=== PATIENT | male | born 1970 | race Caucasian/White ===

== ENCOUNTER 2017-11-28 08:00 | Outpatient (CLI) | payer MEDICAID | END 2017-11-28 23:59 | LOC: LAB.R 08:00 | PROVIDERS: ATTEND Nurse Practitioner | DX: L98.9 Disorder of the skin and subcutaneous tissue, unspecified (principal) | CPT/HCPCS: 87070; 87205 ==

== ENCOUNTER 2017-12-04 08:00 | Outpatient (CLI) | payer MEDICAID ==
[2017-12-04 19:41] LABS: BILIRUBIN,TOTAL 0.4 mg/dL (0.2-1.0); CALCIUM 9.2 mg/dL (8.5-10.3); CREATININE 1.2 mg/dL (0.6-1.2)
[2017-12-04 19:45] LABS: BASOPHILS % (AUTO) 0.5 %; EOSINOPHILS # (AUTO) 0.1 10^3/uL (0.0-0.7); EOSINOPHILS % (AUTO) 2.1 %; LYMPHOCYTES # (AUTO) 1.4 10^3/uL (1.5-3.5); LYMPHOCYTES % (AUTO) 19.6 %; MEAN CORPUSCULAR HEMOGLOBIN 27.6 pg (27.0-31.0); MEAN CORPUSCULAR HGB CONC 32.5 g/dL (32.0-36.0); MEAN CORPUSCULAR VOLUME 84.8 fL (80.0-94.0); MEAN PLATELET VOLUME 9.9 fL (7.4-11.4); MONOCYTES # (AUTO) 0.4 10^3/uL (0.0-1.0); NEUTROPHILS # (AUTO) 5.2 10^3/uL (1.5-6.6); NEUTROPHILS % (AUTO) 72.8 %; PLT - PLATELET COUNT 270 10^3/uL (130-450); RED BLOOD COUNT 4.71 10^6/uL (4.70-6.10); RED CELL DISTRIBUTION WIDTH 14.5 % (12.0-15.0); WHITE BLOOD COUNT 7.1 x10^3/uL (4.8-10.8)
== END 2017-12-04 08:01 | disposition home or self-care (01) ==
LOC: LAB.WCP 08:00
PROVIDERS: ATTEND Nurse Practitioner
DX: F17.210 Nicotine dependence, cigarettes, uncomplicated (principal); I10 Essential (primary) hypertension
CPT/HCPCS: 36415; 80053; 85025

== ENCOUNTER 2017-12-04 13:54 | Outpatient (CLI) | payer MEDICAID ==
--- NOTE | 2017-12-04 15:15 | XRAY Report ---
TWO VIEW CHEST: 12/04/2017 CLINICAL INDICATION: Hypertension, nicotine dependence. FINDINGS: Frontal and lateral views of the chest demonstrate a normal cardiac silhouette. The lungs are clear. No effusion or pneumothorax is present. IMPRESSION: NORMAL CHEST. TD: 12/04/2017 15:13
== END 2017-12-04 13:55 | disposition home or self-care (01) ==
LOC: DI.N 13:54
PROVIDERS: ATTEND Nurse Practitioner
DX: I10 Essential (primary) hypertension (principal); F17.210 Nicotine dependence, cigarettes, uncomplicated
CPT/HCPCS: 36415; 71046; 80053; 85025

== ENCOUNTER 2017-12-05 10:00 | Outpatient (CLI) | payer MEDICAID | END 2017-12-05 10:15 | disposition home or self-care (01) | LOC: RT.N 10:00 | PROVIDERS: ATTEND Nurse Practitioner | DX: I10 Essential (primary) hypertension (principal); F17.210 Nicotine dependence, cigarettes, uncomplicated | CPT/HCPCS: 93005 ==

== ENCOUNTER 2017-12-14 08:51 | Day surgery (SDC) | payer MEDICAID ==
[2017-12-14 09:51] VITALS: BP 131/94
[2017-12-14] MEDS ORDERED: LACTATED RINGERS 1,000 ML IV ONE ×2 (09:56→15:36)
[2017-12-14] MEDS ORDERED: VANCOMYCIN 1 GM VIAL ONE ×2 (11:38)
[2017-12-14] MEDS ORDERED: PROPOFOL 200 MG/20 ML VIAL IVP ONE (13:35)
[2017-12-14] MEDS ORDERED: MIDAZOLAM 2 MG/2 ML VIAL IVP ONE (13:35)
[2017-12-14] MEDS ORDERED: fentaNYL 100 MCG/2 ML VIAL IVP ONE (13:35)
[2017-12-14] MEDS ORDERED: LABETALOL 5 MG/1 ML 20 ML MDV IVP ONE (13:35)
[2017-12-14] MEDS ORDERED: KETOROLAC 30 MG/ML VIAL IVP ONE (13:35)
[2017-12-14] MEDS ORDERED: ONDANSETRON 4 MG/2 ML VIAL IVP ONE (13:35)
[2017-12-14] MEDS ORDERED: ceFAZolin 2 GM/50 ML 2 GM/50 ML BAG IV ONE (16:11)
[2017-12-14] MEDS ORDERED: HYDROmorphone 0.5 MG/0.5 ML SYRINGE IVP PRN (16:40)
[2017-12-14] MEDS ORDERED: ONDANSETRON 4 MG/2 ML VIAL IVP PRN (16:42)
--- NOTE | 2017-12-14 17:29 | XRAY Report ---
TWO-VIEW RIGHT KNEE: 12/14/2017 CLINICAL INDICATION: Fracture fixation. TECHNIQUE: Intraoperative frontal and lateral views of the right knee were obtained. COMPARISON: 11/29/2017 FINDINGS: Previous K-wire and cerclage wire fixation has been removed. New wire fixation is present. Seven seconds of fluoroscopy time was provided to Dr. Jones. Two spot images obtained. IMPRESSION: INTRAOPERATIVE IMAGING OF RIGHT KNEE HARDWARE REMOVAL AND OPEN REDUCTION AND INTERNAL FIXATION. TD: 12/14/2017 17:27
[2017-12-14] MEDS: LACTATED RINGERS 1,000 ML IV SCH (17:35)
[2017-12-14] MEDS: CITALOPRAM 10 MG TABLET PO SCH (17:43)
[2017-12-14] MEDS ORDERED: KETOROLAC 30 MG/ML VIAL IVP SCH (18:00)
[2017-12-14] MEDS: oxyCOD/ACETAMIN 5 MG/325 MG TABLET PO PRN ×2 (18:47→22:43)
[2017-12-14] MEDS ORDERED: SODIUM CHLORIDE FLUSH 0.9% 10 ML SYRINGE ONE (20:19)
[2017-12-15] MEDS: KETOROLAC 30 MG/ML VIAL IVP SCH ×2 (01:38→08:26)
[2017-12-15] MEDS: oxyCOD/ACETAMIN 5 MG/325 MG TABLET PO PRN ×2 (03:17→08:27)
--- NOTE | 2017-12-15 08:16 | Discharge Plan ---
Discharge Plan Disposition: 01 Home, Self Care Condition: Stable Prescriptions: Cephalexin [Keflex] 500 mg PO Q6H #12 capsule Oxycodone HCl/Acetaminophen [Oxycodone-Acetaminophen 5-325] 2 each PO Q4H PRN # 40 tablet PRN Reason: Pain Diet: Regular Activity Restrictions: Use Walker, Partial weight Bearing in Full Extension. Shower Restrictions: Yes (Best is seated with dressing protected with plastic and tape.) Driving Restrictions: Yes (Cannot Drive) Assistance Devices: Walker Weight Bearing: Partial Weight Additional Instructions or Follow Up instructions: Follow-up as scheduled No Smoking: If you smoke, Please STOP! Call for help. Follow-up with: Gualberto Willis ARNP [Primary Care Provider] -
[2017-12-15] MEDS ORDERED: SODIUM CHLORIDE 0.9% MINIBAG 100 ML IV ONE (08:27)
[2017-12-15] MEDS: CITALOPRAM 10 MG TABLET PO SCH (08:27)
[2017-12-15] MEDS: LACTATED RINGERS 1,000 ML IV SCH (08:52)
[2017-12-15] MEDS ORDERED: NON FORMULARY MED (Lisinopril [Lisinopril] 20 MG) PO SCH (09:00)
[2017-12-15] MEDS ORDERED: LISINOPRIL 20 MG TABLET PO SCH (09:00)
[2017-12-15] MEDS ORDERED: ceFAZolin 2 GM in SODIUM CHLORIDE 0.9% MINIBAG 100 ML IV SCH (09:00)
[2017-12-15] MEDS ORDERED: NON FORMULARY MED (Amlodipine Besylate [Amlodipine Besylate] 10 MG) ORAL SCH (09:00)
[2017-12-15] MEDS ORDERED: CITALOPRAM HYDROBROMIDE 20 MG ORAL SCH (09:00)
[2017-12-15] MEDS ORDERED: amLODIPine 5 MG TABLET PO SCH (09:00)
[2017-12-15] MEDS ORDERED: ceFAZolin 2 GM/50 ML 2 GM/50 ML BAG IV SCH (09:00)
--- NOTE | 2017-12-18 09:49 | XRAY Report ---
[facility] Fluoroscopy time only, 2 images submitted for interpretation. Fluoroscopy time 0.07 minutes. MTDD
--- NOTE | 2017-12-18 12:15 | OPERATIVE REPORT ---
DATE OF SERVICE: 12/14/2017 Physician: Rick Jones MD PLEASE REVIEW BLANKS S/L RAISING OR BRIDGING? remove this note before signing - thanks PREOPERATIVE DIAGNOSIS: Right patellar fracture, loss of reduction. POSTOPERATIVE DIAGNOSIS: Right patellar fracture, loss of reduction. PROCEDURE PERFORMED: Right patella, removal of hardware; open reduction and internal fixation; quadriceps V-Y advancement. ANESTHESIA: Spinal plus LMA. ESTIMATED BLOOD LOSS: 150 mL. TOURNIQUET TIME: 300 mm up for 90 minutes, then down for 33 minutes, then up for 55 minutes, then down. INDICATIONS: This man had suffered a fall and closed transverse comminuted patellar fracture in 08/2017 while living in [place]. He developed a popliteal sore and infection a few days later related to brace irritation. This took approximately 2 months to close. While still in [place], he underwent open reduction and internal fixation with 2 K-wires as a tension band technique. He presented here in early November with disrupted repair and hardware, as well as a crusty anterior surgical incision with staple sites. There were no other signs of infection. He has spent about 2 weeks scrubbing the wound area with brush and Hibiclens. PROCEDURE IN DETAIL: Spinal anesthetic was placed in the preoperative area. Patient was then brought to the operating room and placed on a standard operating room table. The right lower extremity was prepped and sterilely draped in the usual fashion. A high thigh tourniquet was placed and ultimately inflated as listed above. A timeout was held to identify patient, site, and procedure. The right lower extremity was then exsanguinated and the tourniquet elevated as above. The double knife technique was used to fully excise the prior surgical scar. The path through the subcutaneous tissue was full of scar and was divided sharply with electrocautery. The distal quadriceps fascia was exposed and a plane developed between this and the thigh fascia. This was then carried down over the patella and very proximal patellar tendon. The fracture gap was filled with organizing scar tissue. A specimen was sent for culture. There was an approximately 1-inch gap between the distal anterior edge of the proximal fragment and the anterior proximal edge of the distal fragment. On anterior view, the distal fragment showed about a 45-degree bevel relative to the axial plane of the patella. On the AP view, the distal end of the proximal fragment was rotated about 30 degrees to the axial plane. Both bones, cancellous sides, were fairly smooth flat surfaces. Both fragments were very stable although . The little portion that could be seen of the posterior surface of the distal fragment was undamaged articular cartilage. The deep surface of the proximal fragment could not be seen at any point in the procedure. No fragmentation of the distal pole could be located. There was damage to the patellar ligament origin. This was perhaps 20% of the area of the tendon and possibly related to the tearing out of the wire loop after the longitudinal pins had backed out. Attention was then directed to the hardware. Some dissection was done longitudinally to locate the wire knot and bent portion. The distal loop was easily located and traced up past the crossover point. It then dove down on both sides into the tendinous tissue where it ran posterior to the pins. Wire cutters were then used to remove all pieces. The wound was irrigated with normal saline. Each pin was then located with moderate difficulty and removed. Now there was a better access to the fracture gap, which was debrided thoroughly. There was much organized hematoma but no sign of forming new bone. In addition, the surfaces of the cancellous bone were scraped free of soft tissues with a curet and endometrial curet. The wound was again irrigated with normal saline. At this point, each of the 2 fragments was found to be very rigidly fixed against any longitudinal displacement. Several minutes were spent trying to mobilize the upper fragment. There was only slight success with this. The same with the distal pole, except only a small amount of corrective tilting could be achieved. Consideration was given to stopping the procedure at that point; this was about 40 minutes into the procedure. This would require another procedure after complete wound healing. Looking at the ligamentous tissues, it was obvious that neither a distal pole resection or a patellectomy could achieve a ligamentous connection with the upper end of the patellar tendon. Irrigation with normal saline was done during this consideration. The decision was made to proceed with a V-Y advancement of the upper portion of the patella to bring its distal surface down to the inferior fragment. The surgical incision was extended a few centimeters proximally, and scissors dissection was done deeper to expose the quad fascia. A marking pen was then used to plan the V incision. A scalpel was then used to incise the quadriceps tendon along the line drawn. This was continued down to the medial and lateral corners of the patella. This allowed the gap to be increased by about 1 cm. The medial and lateral tissues were restraining. Steadily a stretch was applied. This only allowed a few millimeters of advance. Some continuation of the limbs of the V allowed the fragments to reach together on the deep portion of the fracture but leaving about a 1 cm gap superficially. This position could be held only with significant bone holding forceps force bridging the fracture. This force was limited somewhat by concern over fracturing the inferior pole or overstretching the retinacular tissues. Fixation was also difficult. There was no way to achieve a drill hole for a longitudinal pin. Starting in the upper edge of the proximal fragment, the start point for the antegrade drilling would be forced anterior and the accent in the fracture probably too posterior and into the joint. Also, a straight pass [TIME: 12:25] would entirely miss the distal fragment, and pass deep to that fragment. The only possibility was to drill both fragments separately and then connect with a wire, which could bend crossing the fracture site, accommodating the fracture fragments as they lay. I chose this. A cerclage wire was considered, but it would not be able to provide the anterior surface compressing force, and it might tear out the soft tissues similar to what seemed to have happened at the proximal patellar tendon after the first operation. I chose a "W" wire technique to provide the force and avoid cut-out through the soft tissues. Two 2.5 mm holes were then drilled antegrade into the distal fragment beginning in about the mid AP position. A curved 18-gauge wire would pass into the distal hole but not advance. A 20-gauge wire was folded at its tip and would advance from distal ending up in the fracture plane. A second hole was drilled about 1 or 1.5 cm from the first. The other end of the wire was crimped and passed from distal up into the fracture plane. Then two 2.5 holes were drilled from the upper pole of the proximal fragment down to the fracture plane. These were aimed to come out at about the same mediolateral position as the holes in the distal fragment. Fortunately this worked out well. It was then possible to pass the wires retrograde through the holes in the proximal fragment. About 2 cm of wire protruded from each side on the distal hole. The wire was then folded over so that it lay over the anterior surface of the distal fragment and up just across the gap. The distal fragment was then clamped tightly in a proximal direction against the proximal fragment with a medium bone clamp. The deep portion of the fracture fragments seemed to come together nicely, but superficially there was still a gap. This was accepted. The medial wire was then passed beneath the tip of the V and up to the other wire. The twisted wire knot was then tightened and cut off. The C-arm fluoroscopy was then brought in for good AP and lateral views. The lateral views showed the construct desired and unexpectedly good apposition of the deep portion of the patella. There was no sign of fragmentation. AP view looked good on the lateral half, but the medial wire seemed to have cut out of the anterior cortex of the proximal pole and exited part way distal. This may have happened during wire knot formation or tightening. The situation was not good. The lateral half probably would hold except for unexpected strains. The medial portion might provide some limited compression at this point. Consideration of options at this point were to try additional fixation of some pattern or end the operation now and proceed to closing. Additional fixation would take, at a minimum, another half hour. The case was already about 3 hours long, and no further tourniquet time was available. I decided to accept the fixation as is, knowing that the need for another operation was very possible. A single 3 mm suture anchor was then placed quickly into the distal fragments and the suture was used to make a grasping stitch in the portion of the patellar tendon. Wound was irrigated thoroughly with normal saline. The quadriceps incisions were closed with [id number] Ethibond sutures, (19:53) or open, so that some of the retinacular tissue was similarly reapproximated. The thigh fascia and subcutaneous adipose was closed with 2-0 PDS. Irrigation was repeated. The skin margins were aligned with 3-0 PDS sutures. The skin was then closed with a running subcuticular stitch of 3-0 Prolene. This was supported with longitudinal Steri-Strips. A sterile bandage was applied. Patient was then awakened, extubated, and returned to the recovery room in good condition, having tolerated the procedure well with an approximately 150 mL blood loss. TD: 12/18/2017 00:20
== END 2017-12-15 10:40 | disposition home or self-care (01) ==
LOC: SDS 08:51 → OBS 16:00 → SDS 12-15 10:40
PROVIDERS: ATTEND Orthopaedic Surgery
PROC: 0QSD04Z Reposition Right Patella with Internal Fixation Device, Open Approach (ICD-10-PCS; principal; 2017-12-14 10:00)
DX: S82.031A Displaced transverse fracture of right patella, initial encounter for closed fracture (principal); I10 Essential (primary) hypertension; F17.210 Nicotine dependence, cigarettes, uncomplicated
CPT/HCPCS: 27524; 73560; A9270; J0690; J3370; J7120; 87070; 87205

== ENCOUNTER 2018-01-25 11:09 | Outpatient (CLI) | END 2018-01-25 11:10 | disposition home or self-care (01) ==

== ENCOUNTER 2018-01-29 09:07 | Day surgery (SDC) | payer MEDICAID ==
[2018-01-29] MEDS ORDERED: LACTATED RINGERS 1,000 ML IV ONE (10:44)
[2018-01-29] MEDS ORDERED: VANCOMYCIN 1 GM VIAL ONE (10:58)
[2018-01-29] MEDS ORDERED: VANCOMYCIN INJ 1 GM in SODIUM CHLORIDE 0.9% 250 ML IV SCH (11:00)
[2018-01-29] MEDS ORDERED: SCOPOLAMINE PATCH TOP ONE (14:21)
[2018-01-29] MEDS ORDERED: KETOROLAC 30 MG/ML VIAL IVP ONE (15:00)
[2018-01-29] MEDS ORDERED: ROPIVACAINE 0.5% PF 20 ML AMPULE EP ONE (15:00)
[2018-01-29] MEDS ORDERED: LIDOCAINE-MPF 2% 5 ML VIAL IM ONE (15:00)
[2018-01-29] MEDS ORDERED: PROPOFOL 200 MG/20 ML VIAL IVP ONE (15:00)
[2018-01-29] MEDS ORDERED: fentaNYL 100 MCG/2 ML VIAL IVP ONE (15:00)
[2018-01-29] MEDS ORDERED: MIDAZOLAM 2 MG/2 ML VIAL IVP ONE (15:00)
[2018-01-29] MEDS ORDERED: ONDANSETRON 4 MG/2 ML VIAL IVP ONE (15:00)
[2018-01-29] MEDS ORDERED: METOCLOPRAMIDE 10 MG/2 ML VIAL IVP ONE ×2 (15:00)
[2018-01-29] MEDS ORDERED: DEXAMETHASONE 4 MG/ML VIAL IVP ONE (15:00)
--- NOTE | 2018-01-29 15:54 | OPERATIVE REPORT ---
Operative Report - General Procedure Date: 01/29/18 Planned Procedure: Revision ORIF right patella fracture with bone void filler Pre-Op Diagnosis: Comminuted patella fracture right with delayed union Procedure Performed: Preop diagnosis: Delayed union right patella fracture with bone defect Post op diagnosis: Same Procedure: Revision ORIF righe patlella fracture and application of Prodense bone void filler Surgeon: Benoit General anesthesia TT less than one hour Complications none Operative procedure in detail: The patient was taken to the operating room and positioned in the supine position. The leg was prepped and draped in the usual sterile fashion. The tourniquet was inflated to 300mmHg after the limb was exsanguinated. An incision was made through the patients previous surgical scan and the dissection was carried down through the subcutaneous tissues. The patella fracture was identified. The previoiusly placed tension band wire was loose and there was no signs of union of the fracture. The defect was debrided and a currette was used to expose the bone edges. Two K wires were introduced through the patella from distal to proximal and good position was noted on the flouro. The cannulated drill was passed over the K wires and two screws were inserted. The screws were then inserted using manual techniques. There was stilll a large defect noted. The prodense was then mixed and inserted into the defect. Intra operative flouro was used to check the position of the hardware and the prodense. All appeared to be satisfactory. We did remove the wire fixation. At the end of the procedure all sponge and needle counts were correct x 2. There were no complications. - Procedure Note Primary Surgeon: Benoit Anesthesia Technique: General LMA IV Fluids (mL): 100 Estimated Blood Loss (mL): 5 Urine Output (mL): 100 Complications: None
--- NOTE | 2018-01-29 16:41 | XRAY Report ---
EXAM: FLUOROSCOPIC GUIDANCE EXAM DATE: 01/29/2018 04:12 PM. CLINICAL HISTORY: ORIF RIGHT PATELLA. COMPARISON: None. FINDINGS: Fluoroscopic images demonstrate internal fixation of the patella with 2 screws and a cercla ge wire. IMPRESSION: Fluoroscopic guidance provided for Dr. Laboy. Total fluoroscopy time: 0.1 minute. Numbe r of images: 3. [facility] Referring Provider Line: [phone] SITE ID: [id number]
[2018-01-29 16:55] VITALS: BP 136/83
--- NOTE | 2018-02-05 16:07 | XRAY Report ---
[facility]: Fluoroscopy time only, 3 images submitted for interpretation. Fluoroscopy time 0.1 minutes. MTDD
== END 2018-01-29 09:08 | disposition home or self-care (01) ==
LOC: SDS 09:07
PROVIDERS: ATTEND Orthopaedic Surgery
PROC: 0QSD04Z Reposition Right Patella with Internal Fixation Device, Open Approach (ICD-10-PCS; principal; 2018-01-29 14:52)
DX: S82.041K Displaced comminuted fracture of right patella, subsequent encounter for closed fracture with nonunion (principal); I10 Essential (primary) hypertension
CPT/HCPCS: 27524; 73560; J2765; J3370; J3490; J7120

== ENCOUNTER 2018-02-20 09:00 | Outpatient (CLI) | payer MEDICAID | END 2018-02-20 09:01 | disposition home or self-care (01) | LOC: LAB.R 09:00 | PROVIDERS: ATTEND Orthopaedic Surgery | DX: S81.801D Unspecified open wound, right lower leg, subsequent encounter (principal); S81.001D Unspecified open wound, right knee, subsequent encounter; L08.89 Other specified local infections of the skin and subcutaneous tissue | CPT/HCPCS: 87070; 87077; 87181; 87205 ==

== ENCOUNTER 2018-03-14 08:00 | Outpatient (CLI) | payer MEDICAID | END 2018-03-14 08:01 | disposition home or self-care (01) | LOC: LAB.R 08:00 | PROVIDERS: ATTEND Orthopaedic Surgery | DX: S81.001D Unspecified open wound, right knee, subsequent encounter (principal) | CPT/HCPCS: 87070; 87205 ==